=== PATIENT | female | born 1975 | race Caucasian/White ===

== ENCOUNTER 2016-07-08 12:45 | Emergency (ER) | payer OTHER ==
--- NOTE | 2016-07-08 13:40 | ED Physician Documentation ---
Sore Throat/Dental Pain - HISTORIAN Historian: patient, spouse - HPI Stated Complaint: having dental pain on left side of mouth Chief Complaint: Dental Pain Additional Information: [facility] dental caries fractures and abscess. seen [facility] for repair but await till inf cleared went to [facility] her clindamycin but nmo pain meds - review medicade rx hx-no indication abuse-will gave her tylenol #3 which has helped before. Onset: days ago (several) Context: Abscess, Dental Caries Associated Symptoms: fever, moderate Worsened By: heat, cold - ROS CONST: no problems CVS/RESP: none GI/: nausea. denies: problems urinating, vomiting NEURO/PSYCH: depression (from condition) - PAST HX Past History: dental surgery, gum disease, tonsillectomy ( gal bladder cardiac stents) Other History: cardiac disease Immunizations: UTD Home Medications: Ambulatory Orders Medication Instructions Recorded Acetaminophen [Tylenol Extra 500 mg PO Q4 PRN 07/08/16 Strength] Aspirin [Ned] 81 mg PO DAILY 07/08/16 Atorvastatin Calcium 40 mg PO 07/08/16 Clopidogrel Bisulfate [Plavix] 75 mg PO QD 07/08/16 Metoprolol Tartrate [Lopressor] 12.5 mg PO BID 07/08/16 - SOCIAL HX Smoking History: non-smoker Alcohol Use: none Drug Use: none - FAMILY HX Family History: No - VITAL SIGNS Vital Signs: Vital Signs Temp Pulse Resp BP Pulse Ox 97.7 F 92 H 20 134/59 98 07/08/16 12:55 07/08/16 12:55 07/08/16 12:55 07/08/16 12:55 07/08/16 12:55 - REVIEWED ASSESSMENTS Nursing Assessment Reviewed: Yes Vitals Reviewed: Yes Dental Pain Physical Exam - EXAM General Appearance: moderate distress Head/Neck: head nml inspection, trachea midline, maxillary swelling (L). No: no lymphadenopathy Eyes: eyes nml inspection Mouth/Throat: lips nml, dental tenderness, gum swelling around teeth, widespread dental decay. No: gums nml Respiratory: no resp. distress, breath sounds nml. No: respiratory distress, stridor CVS: reg. rate & rhythm, heart sounds nml Abdomen: soft, non-tender Extremities: non-tender Skin: warm/dry, normal color. No: cyanosis, diaphoresis, jaundice Neuro/Psych: depression (depdressive attitude probably marked exaberated by dental pain). No: weakness Discharge Clincal Impression: dental decay-abscess, hx mitral valve [id number] Home Medications: Ambulatory Orders Acetaminophen [Tylenol Extra Strength] 500 mg PO Q4 PRN 07/08/16 Aspirin [Ned] 81 mg PO DAILY 07/08/16 Atorvastatin Calcium 40 mg PO 07/08/16 Clopidogrel Bisulfate [Plavix] 75 mg PO QD 07/08/16 Metoprolol Tartrate [Lopressor] 12.5 mg PO BID 07/08/16 Condition: Good Disposition: HOME, SELF-CARE Decision to Admit: NO Decision Time: 13:48
[2016-07-08 13:49] VITALS: BP 117/72
== END 2016-07-08 13:30 | disposition home or self-care (01) ==
LOC: ED 12:45
DX: K02.9 Dental caries, unspecified (principal)
CPT/HCPCS: 99282

== ENCOUNTER 2016-07-20 16:28 | Emergency (ER) | payer OTHER ==
--- NOTE | 2016-07-20 17:22 | ED Physician Documentation ---
Sore Throat/Dental Pain - HISTORIAN Historian: patient - HPI Stated Complaint: Dental Pain Chief Complaint: Dental Pain Onset: days ago Context: Fractured Tooth Associated Symptoms: denies: fever, chills, sore throat Further Comments: yes (Patient states that she has had a lot of dental problems in the past. Has been having recurrent problems with infection and pain. Has finished a course of clindamycin 3 days ago and is starting to have some increase pain again. Was seen in [facility] ED. Appt at [facility] the 28 of August.) - ROS CONST: no problems NEURO/PSYCH: none - PAST HX Past History: other (chronic back pain, [place] in 2016) Other History: cardiac disease, other (mitral valve prolapse, ) Allergies/Adverse Reactions: Allergies Allergy/AdvReac Type Severity Reaction Status Date / Time No Known Allergies Allergy Unverified 07/20/16 16:37 Home Medications: Ambulatory Orders Medication Instructions Recorded Acetaminophen [Tylenol Extra 500 mg PO Q4 PRN 07/08/16 Strength] Aspirin [Ned] 81 mg PO DAILY 07/08/16 Atorvastatin Calcium 40 mg PO DAILY 07/08/16 Clopidogrel Bisulfate [Plavix] 75 mg PO QD 07/08/16 Metoprolol Tartrate [Lopressor] 12.5 mg PO BID 07/08/16 Acetaminophen with Codeine 1 each PO Q4 PRN #20 tablet 07/20/16 [Acetaminophen-Cod #3 Tablet] Clindamycin HCl [Cleocin] 300 mg PO QID #40 capsule 07/20/16 - SOCIAL HX Smoking History: greater than 1 pack/day (1ppd) Alcohol Use: rarely Drug Use: marijuana - FAMILY HX Family History: Yes (CAD) - VITAL SIGNS Vital Signs: Vital Signs Temp Pulse Resp BP Pulse Ox 92 H 18 133/75 98 07/20/16 16:30 07/20/16 16:30 07/20/16 16:30 07/20/16 16:30 - REVIEWED ASSESSMENTS Nursing Assessment Reviewed: Yes Vitals Reviewed: Yes Dental Pain Physical Exam - EXAM General Appearance: alert, mild distress Head/Neck: trachea midline, no lymphadenopathy, thyroid nml Mouth/Throat: lips nml, pharynx nml, voice nml, dental tenderness (left upper incisor, left lower molar) Ear/Nose: nml inspection Respiratory: no resp. distress, breath sounds nml. No: respiratory distress, wheezes, rales, rhonchi CVS: reg. rate & rhythm, heart sounds nml Skin: warm/dry Neuro/Psych: other (cognition normal) Discharge Clincal Impression: Dental caries Prescriptions: Acetaminophen with Codeine [Acetaminophen-Cod #3 Tablet] 1 each PO Q4 PRN #20 tablet PRN Reason: Pain Clindamycin HCl [Cleocin] 300 mg PO QID #40 capsule Additional Instructions: Get established with a primary care provider. Take clindamycin 4 times a day as directed. Take Tylenol #3one q 4 hours as needed for pain pain. Gargle with salt water. STOP SMOKING. Home Medications: Ambulatory Orders Acetaminophen [Tylenol Extra Strength] 500 mg PO Q4 PRN 07/08/16 Aspirin [Ned] 81 mg PO DAILY 07/08/16 Atorvastatin Calcium 40 mg PO DAILY 07/08/16 Clopidogrel Bisulfate [Plavix] 75 mg PO QD 07/08/16 Metoprolol Tartrate [Lopressor] 12.5 mg PO BID 07/08/16 Acetaminophen with Codeine [Acetaminophen-Cod #3 Tablet] 1 each PO Q4 PRN #20 tablet 07/20/16 Clindamycin HCl [Cleocin] 300 mg PO QID #40 capsule 07/20/16 Condition: Stable Disposition: HOME, SELF-CARE Decision to Admit: NO Date of Decison to Admit: 07/20/16 Decision Time: 17:38
[2016-07-20 17:53] VITALS: BP 128/68
== END 2016-07-20 17:50 | disposition home or self-care (01) ==
LOC: ED 16:28
DX: K02.9 Dental caries, unspecified (principal)
CPT/HCPCS: 99283

== ENCOUNTER 2017-01-04 16:37 | Emergency (ER) | payer OTHER ==
[2017-01-04 16:56] VITALS: BP 133/81
--- NOTE | 2017-01-04 17:00 | ED Physician Documentation ---
Sore Throat/Dental Pain - HISTORIAN Historian: patient - HPI Stated Complaint: dental pain Chief Complaint: Dental Pain Onset: hours (Started to have pain in the right upper tooth area. Has had appointemnt with [facility]. ) Associated Symptoms: denies: fever, chills Further Comments: yes (Patient has had some dental problems for some time. States that she has not been able to get her teeth taken care of. Does not see any primary care provider. Has been seen several times in [facility] ED for dental pain. Has recieved scripts from [facility] that I can pull up.) - ROS CONST: no problems - PAST HX Past History: other (two cardiac stints placed 2015) Other History: cardiac disease Allergies/Adverse Reactions: Allergies Allergy/AdvReac Type Severity Reaction Status Date / Time No Known Allergies Allergy Verified 01/04/17 16:56 Home Medications: Ambulatory Orders Medication Instructions Recorded Acetaminophen [Tylenol Extra 500 mg PO Q4 PRN 07/08/16 Strength] Aspirin [Ned] 81 mg PO DAILY 07/08/16 Atorvastatin Calcium 40 mg PO DAILY 07/08/16 Clopidogrel Bisulfate [Plavix] 75 mg PO QD 07/08/16 Metoprolol Tartrate [Lopressor] 12.5 mg PO BID 07/08/16 Acetaminophen with Codeine 1 each PO Q6 PRN #20 tablet 01/04/17 [Acetaminophen-Cod #3 Tablet] Clindamycin HCl [Cleocin] 300 mg PO QID #40 capsule 01/04/17 - SOCIAL HX Smoking History: greater than 1 pack/day Alcohol Use: none Drug Use: none - FAMILY HX Family History: Yes - VITAL SIGNS Vital Signs: Vital Signs Temp Pulse Resp BP Pulse Ox 128/68 07/20/16 17:50 Dental Pain Physical Exam - EXAM General Appearance: alert, mild distress Head/Neck: head nml inspection, trachea midline, no lymphadenopathy Mouth/Throat: lips nml, gums nml (no swelling noted), pharynx nml, voice nml, widespread dental decay. No: gum swelling around teeth, pharyngeal erythema Ear/Nose: nml inspection Respiratory: no resp. distress, breath sounds nml, wheezes (mild intermittent wheezing bilaterally) CVS: reg. rate & rhythm, heart sounds nml. No: murmur Skin: warm/dry Neuro/Psych: No: weakness, numbness Discharge Clincal Impression: Infected dental carries Prescriptions: Acetaminophen with Codeine [Acetaminophen-Cod #3 Tablet] 1 each PO Q6 PRN #20 tablet PRN Reason: Pain Clindamycin HCl [Cleocin] 300 mg PO QID #40 capsule Referrals: Primary Doctor,No [Primary Care Provider] - 2 Days Additional Instructions: Rinse mouth with salt water, get and keep appointment with dentist SABRINA. Get established with a primary care provider. Home Medications: Ambulatory Orders Acetaminophen [Tylenol Extra Strength] 500 mg PO Q4 PRN 07/08/16 Aspirin [Ned] 81 mg PO DAILY 07/08/16 Atorvastatin Calcium 40 mg PO DAILY 07/08/16 Clopidogrel Bisulfate [Plavix] 75 mg PO QD 07/08/16 Metoprolol Tartrate [Lopressor] 12.5 mg PO BID 07/08/16 Acetaminophen with Codeine [Acetaminophen-Cod #3 Tablet] 1 each PO Q6 PRN #20 tablet 01/04/17 Clindamycin HCl [Cleocin] 300 mg PO QID #40 capsule 01/04/17 Decision to Admit: NO Date of Decison to Admit: 01/04/17 Decision Time: 17:12
[2017-01-04] MEDS: KETOROLAC TROMETHAMINE 60 MG/2 ML VIAL IM ONE (17:08)
== END 2017-01-04 17:15 ==
LOC: ED 16:37
DX: K02.9 Dental caries, unspecified (principal)
CPT/HCPCS: 96372; 99283; J1885

== ENCOUNTER 2017-06-03 07:55 | Emergency (ER) | payer OTHER ==
--- NOTE | 2017-06-03 08:13 | ED Physician Documentation ---
Sore Throat/Dental Pain - HISTORIAN Historian: patient - HPI Chief Complaint: Dental Pain Additional Information: Patient has had multiple problems with her teeth. She is making arrangements to get the rest of them pulled and get fitted for dentures. 3 days ago she started to have some dental pain associated with a left upper tooth. Has not been getting any better with home care. States that clindamycin seems to help. Onset: days ago (Started Friday ( 2 dasy ago)) Context: Dental Caries Associated Symptoms: denies: fever (has been taking Ibuprofen abd tylenol), chills - ROS CONST: no problems - PAST HX Past History: none (mitral valve prolapse) Other History: cardiac disease (has had 2 stint placed) Allergies/Adverse Reactions: Allergies Allergy/AdvReac Type Severity Reaction Status Date / Time No Known Allergies Allergy Verified 06/03/17 08:16 Home Medications: Ambulatory Orders Medication Instructions Recorded Aspirin [End] 81 mg PO DAILY 07/08/16 Atorvastatin Calcium 40 mg PO DAILY 07/08/16 Metoprolol Tartrate [Lopressor] 12.5 mg PO BID 07/08/16 Clindamycin HCl [Cleocin] 300 mg PO QID #40 capsule 06/03/17 - SOCIAL HX Smoking History: less than 1 pack/day (15 cigarettes per day) Alcohol Use: none Drug Use: marijuana (occasional) - FAMILY HX Family History: No - VITAL SIGNS Vital Signs: Vital Signs Temp Pulse Resp BP Pulse Ox 133/81 01/04/17 17:15 - REVIEWED ASSESSMENTS Nursing Assessment Reviewed: Yes Vitals Reviewed: Yes Dental Pain Physical Exam - EXAM General Appearance: alert, mild distress Head/Neck: head nml inspection, trachea midline, no lymphadenopathy, thyroid nml Mouth/Throat: lips nml, pharynx nml, dental tenderness (left upper cainine), widespread dental decay. No: pharyngeal erythema Ear/Nose: nml inspection Respiratory: no resp. distress, breath sounds nml. No: wheezes, rales, rhonchi CVS: reg. rate & rhythm, heart sounds nml. No: murmur (I could not appreciate any mumur) Skin: warm/dry Neuro/Psych: other (mentation at baseline) Discharge Clincal Impression: Dental caries Prescriptions: Clindamycin HCl [Cleocin] 300 mg PO QID #40 capsule Referrals: Primary Doctor,No [Primary Care Provider] - 2 Days Additional Instructions: Gargle with salt water, continue taking some oragel for the pain. Take Aleve two tablets with food twice a day. Take Clindamyacin as directed. Condition: Stable Disposition: 01 HOME, SELF-CARE Decision to Admit: NO Date of Decison to Admit: 06/03/17 Decision Time: 08:16
[2017-06-03 08:16] VITALS: BP 121/38
== END 2017-06-03 08:25 | disposition home or self-care (01) ==
LOC: ED 07:55
DX: K02.9 Dental caries, unspecified (principal)
CPT/HCPCS: 99283

== ENCOUNTER 2017-07-12 16:28 | Emergency (ER) | payer OTHER ==
[2017-07-12 16:52] VITALS: BP 127/62
--- NOTE | 2017-07-12 18:11 | ED Physician Documentation ---
Sore Throat/Dental Pain - HISTORIAN Historian: patient, friend - HPI Stated Complaint: Right facial pain Chief Complaint: Dental Pain Additional Information: rt facial and ear pain hasl multi fx teeth this area-is sched for [facility] near future Onset: days ago (2) Context: Fractured Tooth, Abscess, Dental Caries Associated Symptoms: moderate, L ear pain. denies: fever, chills, sore throat - ROS CONST: no problems CVS/RESP: none GI/: denies: problems urinating, nausea, vomiting NEURO/PSYCH: none - PAST HX Past History: other (VT HTN HI CHOL) Other History: cardiac disease, other (STENTS) Allergies/Adverse Reactions: Allergies Allergy/AdvReac Type Severity Reaction Status Date / Time No Known Allergies Allergy Verified 07/12/17 16:52 Home Medications: Ambulatory Orders Medication Instructions Recorded Aspirin [Ned] 81 mg PO DAILY 07/08/16 Atorvastatin Calcium 40 mg PO DAILY 07/08/16 Metoprolol Tartrate [Lopressor] 12.5 mg PO BID 07/08/16 - SOCIAL HX Smoking History: greater than 1 pack/day Alcohol Use: occasionally Drug Use: marijuana - FAMILY HX Family History: No - VITAL SIGNS Vital Signs: Vital Signs Temp Pulse Resp BP Pulse Ox 97.9 F 88 18 127/62 99 07/12/17 16:49 07/12/17 16:49 07/12/17 16:49 07/12/17 16:49 07/12/17 16:49 - REVIEWED ASSESSMENTS Nursing Assessment Reviewed: Yes Vitals Reviewed: Yes Dental Pain Physical Exam - EXAM General Appearance: mild distress Head/Neck: head nml inspection, trachea midline, maxillary swelling (R), facial erythema, cervical lymphadenopathy Eyes: eyes nml inspection Mouth/Throat: pharynx nml, gum swelling around teeth. No: gums nml Ear/Nose: No: TM erythema Respiratory: No: no resp. distress, breath sounds nml CVS: reg. rate & rhythm, heart sounds nml Abdomen: soft, non-tender Extremities: non-tender, nml ROM Skin: warm/dry, normal color. No: cyanosis, diaphoresis, jaundice, mottled Neuro/Psych: No: weakness, numbness Discharge Clincal Impression: DENTAL SEPSIS IHD, NICOTINE ABUSE Referrals: Primary Doctor,No [Primary Care Provider] - 2 Days Condition: Fair Disposition: HOME, SELF-CARE Decision to Admit: NO Decision Time: 18:14
== END 2017-07-12 18:12 | disposition home or self-care (01) ==
LOC: ED 16:28
DX: A41.89 Other specified sepsis (principal); K02.9 Dental caries, unspecified; I25.9 Chronic ischemic heart disease, unspecified; F17.210 Nicotine dependence, cigarettes, uncomplicated
CPT/HCPCS: 99282; 99283

== ENCOUNTER 2017-08-07 08:00 | Emergency (ER) | payer OTHER ==
[2017-08-07 08:14] VITALS: BP 123/66
--- NOTE | 2017-08-07 08:22 | ED Physician Documentation ---
General Adult - HISTORIAN Historian: patient - HPI Stated Complaint: Dental Pain Chief Complaint: General Adult Onset: days ago (1) Timing: still present Severity: moderate Further Comments: yes (Pt is a 41 yo female with poor dentition and with dental pain in upper molars on both the L and R x 1 day. Pt has dental appontment for extreactions later in the month.) - ROS CONST: no problems EYES/ENT: other (dental pain) CVS/RESP: none GI/: none MS/SKIN/LYMPH: none - PAST HX Past History: AMI Surgeries/Procedures: cholecystectomy, other (tonsills & adenoids) Allergies/Adverse Reactions: Allergies Allergy/AdvReac Type Severity Reaction Status Date / Time No Known Allergies Allergy Verified 08/07/17 08:14 Home Medications: Ambulatory Orders Medication Instructions Recorded Aspirin [Ned] 81 mg PO DAILY 07/08/16 Atorvastatin Calcium 40 mg PO DAILY 07/08/16 Metoprolol Tartrate [Lopressor] 12.5 mg PO BID 07/08/16 - SOCIAL HX Smoking History: cigarettes - FAMILY HX Family History: No - VITAL SIGNS Vital Signs: Vital Signs Temp Pulse Resp BP Pulse Ox 97.4 F L 84 19 123/66 98 08/07/17 08:08 08/07/17 08:08 08/07/17 08:08 08/07/17 08:08 08/07/17 08:08 - REVIEWED ASSESSMENTS Nursing Assessment Reviewed: Yes Vitals Reviewed: Yes Progress - Progress Progress: Rx Penicillin VK 500 mg. Take one every 8 hrs for 10 days. Rx [place] (5/325). Take 1 or 2 tablets by mouth every 4 to 6 hrs as needed for moderate to severe pain. General Adult Physical Exam - PHYSICAL EXAM GENERAL APPEARANCE: mild distress EENT: pharynx normal, other (poor dentition, tenderness upper R molar, fx tooth upper R molar) RESPIRATORY: no resp distress CVS: reg rate & rhythm BACK: normal inspection SKIN: warm/dry, normal color EXTREMITIES: non-tender, normal range of motion, no evidence of injury, no edema , tenderness NEURO: oriented X3, motor nml, sensation nml Discharge Clincal Impression: dental pain Referrals: Primary Doctor,No [Primary Care Provider] - Condition: Good Disposition: 01 HOME, SELF-CARE Decision to Admit: NO Decision Time: 08:27
== END 2017-08-07 08:28 | disposition home or self-care (01) ==
LOC: ED 08:00
DX: K08.89 Other specified disorders of teeth and supporting structures (principal)
CPT/HCPCS: 99282

== ENCOUNTER 2018-02-15 11:27 | Emergency (ER) | payer OTHER ==
--- NOTE | 2018-02-15 11:41 | ED Physician Documentation ---
General Adult - HISTORIAN Historian: patient - HPI Stated Complaint: dental pain Chief Complaint: General Adult Onset: days ago (1) Timing: still present Severity: moderate Further Comments: yes (Pt is a 42 yo female with dental pain that began last night. Pt has poor dentition and had extractions at [facility] school where she is planning to have additional extractions. Pain began in upper jaw, but now she had pain in both upper and lower R jaw. No fever.) - ROS CONST: no problems EYES/ENT: other (dental pain) CVS/RESP: none GI/: none MS/SKIN/LYMPH: none - PAST HX Past History: other (HLD, HTN, CAD w stents) Surgeries/Procedures: cardiac stent, other (Tonsils & Adenoids) Allergies/Adverse Reactions: Allergies Allergy/AdvReac Type Severity Reaction Status Date / Time bee stings Allergy Uncoded 02/15/18 11:45 vinyl Allergy Uncoded 02/15/18 11:45 Home Medications: Ambulatory Orders Medication Instructions Recorded Aspirin [Ned] 81 mg PO DAILY 07/08/16 Atorvastatin Calcium 40 mg PO DAILY 07/08/16 Metoprolol Tartrate [Lopressor] 12.5 mg PO BID 07/08/16 - SOCIAL HX Smoking History: cigarettes - FAMILY HX Family History: Yes (CAD) - VITAL SIGNS Vital Signs: Vital Signs Temp Pulse Resp BP Pulse Ox 123/66 08/07/17 08:28 - REVIEWED ASSESSMENTS Nursing Assessment Reviewed: Yes Vitals Reviewed: Yes Progress - Progress Progress: Rx Keflex 500 mg. Take one every 8 hours for 10 days. Rx [place] (5/325). Take one or two every 4 to 6 hours as needed for moderate to severe pain. General Adult Physical Exam - PHYSICAL EXAM GENERAL APPEARANCE: moderate distress EENT: pharynx normal, other (poor dentition; dental carries upper & lower R jaw) NECK: normal inspection, supple RESPIRATORY: no resp distress CVS: reg rate & rhythm BACK: normal inspection SKIN: warm/dry, normal color EXTREMITIES: non-tender, normal range of motion, no evidence of injury NEURO: oriented X3, motor nml, sensation nml Discharge Clincal Impression: dental pain Referrals: Primary Doctor,No [Primary Care Provider] - Condition: Stable Disposition: 01 HOME, SELF-CARE Decision to Admit: NO Decision Time: 11:46
[2018-02-15 11:44] VITALS: BP 120/73
== END 2018-02-15 11:52 | disposition home or self-care (01) ==
LOC: ED 11:27
DX: K08.89 Other specified disorders of teeth and supporting structures (principal)
CPT/HCPCS: 99282